=== PATIENT | male | born 1950 | race Caucasian/White ===

== ENCOUNTER 2023-03-29 07:27 | Day surgery (SDC) | payer MEDICARE, OTHER ==
[~2023-03-29] VITALS: Ht 177.8 cm; Wt 99.8 kg
[~2023-03-29 07:27] MED LIST: CENTRUM SILVER1 TA2; LORTAB 5/3255 MG PO; MULTI VIT PO; OMEGA 31000 MG PO; PAROXETINE HCL20 MG PO; SIMVASTATIN40 MG PO; SUPER B-COMPLEX1 TA1; TAMSULOSIN HCL0.4 MG PO; TENORMIN50 MG PO
[2023-03-29 09:42] VITALS: BP 143/66
== END 2023-03-29 09:55 | disposition home or self-care (01) ==
LOC: ENDO 07:27 → ORM 10:15 → ENDO 10:15
PROVIDERS: ATTEND Surgery
PROC: 0DBN8ZX Excision of Sigmoid Colon, Via Natural or Artificial Opening Endoscopic, Diagnostic (ICD-10-PCS; principal; 2023-03-29)
DX: K63.5 Polyp of colon (principal); K64.8 Other hemorrhoids; I10 Essential (primary) hypertension